=== PATIENT | female | born 1960 | race Caucasian/White ===

== ENCOUNTER 2021-11-17 15:53 | Inpatient (IN) ==
[2021-11-17] MEDS ORDERED: SODIUM CHLORIDE 0.9% 500 ML IV STA (18:58)
[2021-11-17] MEDS ORDERED: ONDANSETRON 4 MG/2 ML VIAL IV STA (18:58)
[2021-11-17] MEDS ORDERED: KETOROLAC 30 MG/1 ML VIAL IV STA (18:58)
[2021-11-17 20:20] LABS: Basophils % 0.6 % (0.0-0.8); Eosinophils # 0.4 10*3/uL (0.0-0.87); Eosinophils % 6.4 % (0.00-10.9); Hematocrit 34.8 VOL% (35.7-47.0); Immature Granulocytes % 0.2 %; Immature Granulocytes Absolute 0.01 #; Lymphocytes # 1.4 10*3/uL (1.4-4.0); Lymphocytes % 22.6 % (21.3-54.2); Mean Corpuscular HGB Conc 34.5 GM/DL (32-36); Mean Corpuscular Volume 90.6 FL (87-102); Monocytes # 0.5 10*3/uL (0.11-0.8); Monocytes % 8.2 % (1.7-12.7); Platelet Count 177 T/CUMM (130-400); Red Blood Count 3.84 MC/CUMM (3.8-5.5); Red Cell Distribution Width 12.9 % (9.3-17.3); White Blood Count 6.4 T/CUMM (4-12)
[2021-11-17 20:47] LABS: Alanine Aminotransferase 18 U/L (13-56); Albumin 4.2 G/DL (3.4-5.0); Alkaline Phosphatase 80 U/L (45-117); Aspartate Amino Transferase 12 U/L (0-37); Blood Urea Nitrogen 9 MG/DL (7-18); Calcium 9.6 MG/DL (8.5-10.1); Carbon Dioxide 27 MMOL/L (21-32); Chloride 109 MMOL/L (98-107); Glucose 96 MG/DL (74-106); Potassium 2.6 MMOL/L (3.5-5.1); Sodium 143 MMOL/L (136-145); Total Protein 6.4 G/DL (6.4-8.2)
[2021-11-17] MEDS ORDERED: POTASSIUM CHLORIDE RIDER 20 MEQ/100 ML PREMIX IV STA (21:53)
[2021-11-17] MEDS ORDERED: NICOTINE 21 MG/24 HR PATCH TRANSDERM PRN (22:02)
[2021-11-17] MEDS ORDERED: diphenhydrAMINE CAP 25 MG CAPSULE PO PRN (22:02)
[2021-11-17] MEDS ORDERED: hydrALAZINE 20 MG/1 ML VIAL IV PRN (22:02)
[2021-11-17] MEDS ORDERED: GLUCAGON 1 MG VIAL IM PRN (22:02)
[2021-11-17] MEDS ORDERED: ONDANSETRON 4 MG/2 ML VIAL IV PRN (22:02)
[2021-11-17] MEDS ORDERED: guaiFENesin/DM ER 600-30 MG TABLET PO PRN (22:02)
[2021-11-17] MEDS ORDERED: POTASSIUM CHLORIDE 20 MEQ TABLET PO STA (22:06)
[2021-11-17] MEDS ORDERED: DEXTROSE 10% 250 ML BAG IV PRN (22:10)
[2021-11-17 22:48] LABS: RBC,Urine 1 /HPF (0-4); Squamous Epithelial Cell,Urine Occasional /HPF (0-10)
[2021-11-17 22:49] LABS: Urine Appearance Clear (Clear); Urine Color Yellow (Yellow)
[2021-11-17 22:50] LABS: Bilirubin,Urine Negative (Negative); Blood, Urine Negative (Negative); Glucose,Urine (UA) Negative (Negative); Ketones,Urine Negative (Negative); Nitrite,Urine Negative (Negative); Protein,Urine Negative (Negative); Urine Urobilinogen 0.2 eU/dL (<2.0)
[2021-11-17] MEDS: POTASSIUM CHLORIDE RIDER 10 MEQ/100 ML PREMIX IV SCH (22:56)
[2021-11-18] MEDS: POTASSIUM CHLORIDE RIDER 10 MEQ/100 ML PREMIX IV SCH (01:15)
[2021-11-18] MEDS: DEXT 5% NACL 0.9% KCL 40 MEQ 40 MEQ/1,000 ML BAG IV SCH (02:25)
[2021-11-18 05:30] LABS: Basophils % 0.8 % (0.0-0.8); Eosinophils # 0.3 10*3/uL (0.0-0.87); Eosinophils % 6.6 % (0.00-10.9); Hematocrit 32.8 VOL% (35.7-47.0); Hemoglobin 11.5 GM/DL (12.0-16.0); Immature Granulocytes % 0.2 %; Immature Granulocytes Absolute 0.01 #; Lymphocytes # 1.4 10*3/uL (1.4-4.0); Lymphocytes % 28.1 % (21.3-54.2); Mean Corpuscular HGB Conc 35.1 GM/DL (32-36); Mean Corpuscular Volume 91.1 FL (87-102); Mean Platelet Volume 10.5 FL (9.6-12.0); Monocytes # 0.4 10*3/uL (0.11-0.8); Monocytes % 8.4 % (1.7-12.7); Neutrophils % 55.9 % (38.7-73.9); Platelet Count 167 T/CUMM (130-400); Red Cell Distribution Width 12.9 % (9.3-17.3); White Blood Count 5.1 T/CUMM (4-12)
[2021-11-18 05:55] LABS: Calcium 9.1 MG/DL (8.5-10.1); Osmolality,Calculated 287.6 MOS/KG (273-304); Potassium 3.5 MMOL/L (3.5-5.1)
[2021-11-18] MEDS: PANTOPRAZOLE 40 MG TABLET PO SCH (10:35)
[2021-11-18] MEDS ORDERED: LACTATED RINGERS 1,000 ML IV SCH (14:00)
[2021-11-18] MEDS ORDERED: MIDAZOLAM 2 MG/2 ML VIAL ONE (14:11)
[2021-11-18] MEDS ORDERED: propofoL 200 MG/20 ML VIAL IV ONE (15:29)
[2021-11-18] MEDS ORDERED: ONDANSETRON 4 MG/2 ML VIAL ONE (15:29)
[2021-11-18] MEDS ORDERED: GENTAMICIN 80 MG/2 ML VIAL ONE (15:30)
[2021-11-18] MEDS ORDERED: fentaNYL 100 MCG/2 ML VIAL ONE (15:50)
[2021-11-18] MEDS ORDERED: SEVOFLURANE 1 UNIT/15 MINUTE INH ONE (15:52)
[2021-11-18] MEDS: ZONISAMIDE 100 MG CAPSULE PO SCH (21:31)
[2021-11-19] MEDS: DEXT 5% NACL 0.9% KCL 40 MEQ 40 MEQ/1,000 ML BAG IV SCH ×2 (01:26→02:40)
[2021-11-19 05:06] LABS: Basophils % 0.8 % (0.0-0.8); Eosinophils # 0.4 10*3/uL (0.0-0.87); Eosinophils % 8.2 % (0.00-10.9); Hematocrit 33.9 VOL% (35.7-47.0); Hemoglobin 11.5 GM/DL (12.0-16.0); Immature Granulocytes % 0.2 %; Immature Granulocytes Absolute 0.01 #; Lymphocytes # 1.3 10*3/uL (1.4-4.0); Lymphocytes % 26.2 % (21.3-54.2); Mean Corpuscular HGB Conc 33.9 GM/DL (32-36); Mean Corpuscular Volume 92.9 FL (87-102); Mean Platelet Volume 10.2 FL (9.6-12.0); Monocytes # 0.5 10*3/uL (0.11-0.8); Monocytes % 9.4 % (1.7-12.7); Neutrophils % 55.2 % (38.7-73.9); Platelet Count 176 T/CUMM (130-400); Red Blood Count 3.65 MC/CUMM (3.8-5.5); Red Cell Distribution Width 13.1 % (9.3-17.3); White Blood Count 4.8 T/CUMM (4-12)
[2021-11-19 05:35] LABS: Calcium 9.1 MG/DL (8.5-10.1); Osmolality,Calculated 286.7 MOS/KG (273-304); Potassium 3.7 MMOL/L (3.5-5.1)
[2021-11-19] MEDS: ZONISAMIDE 100 MG CAPSULE PO SCH (08:50)
[2021-11-19] MEDS: PANTOPRAZOLE 40 MG TABLET PO SCH (08:51)
[2021-11-19 11:47] VITALS: BP 113/54
== END 2021-11-19 13:53 | disposition home or self-care (01) | DRG 660 ==
LOC: N.ED 15:53 → N.EDINP 22:02 → N.3E 23:22
PROVIDERS: ADMIT Internal Medicine; ATTEND Internal Medicine